=== PATIENT | male | born 1940 | race Caucasian/White ===

== ENCOUNTER → 2017-09-18 | Outpatient (CLI) | payer OTHER ==
[2017-09-18 23:11] LABS: MRSA BY PCR Negative (Negative)
== END | disposition home or self-care (01) ==
LOC: SURGPAT 14:08
DX: K44.9 Diaphragmatic hernia without obstruction or gangrene (principal); I11.0 Hypertensive heart disease with heart failure; I50.42 Chronic combined systolic (congestive) and diastolic (congestive) heart failure; E78.5 Hyperlipidemia, unspecified
CPT/HCPCS: 36415; 71046; 87641

== ENCOUNTER → 2017-09-27 | Outpatient (CLI) | payer OTHER ==
[2014-10-28 15:00] VITALS: BP 141/88
[~2017-09-27] MED LIST: AMLO2.5T PO; ASPI81TA59 PO; ATOR20TA PO; Albuterol Sulfate NEB; CARV6.25 PO; FERR325T72 PO; FLUT16SP NS; HYDR-2766 PO; Hydrocodone/Acetaminophen PO; LISI20TA PO; LISI30TA4 PO; MULT-460 PO; NITR0.4T SL; OMEG1CAP6 PO; PANT40TA3 PO; SERT50TA PO; TAMS0.4C97 PO; ZOLP5TAB PO
--- NOTE | 2017-09-27 09:49 | CARD ---
MR#: [id number] Date of Study: 09/27/2017 Ordering Physician: EB DUFFY, Referring Physician: EB DUFFY Tech: Liya May WILVER APPROVED REPORT EXAM: Two-dimensional and M-mode echocardiogram with Doppler and color Doppler. Other Information Quality : Good INDICATION Pre-Op Surgery/Intervention CABG: Date: 2014 2D DIMENSIONS Left Atrium(2D)4.7 (1.6-4.0cm)IVSd1.1 (0.7-1.1cm) Aortic Root(2D)2.8 (2.0-3.7cm)LVDd4.2 (3.9-5.9cm) LVOT Diameter2.2 (1.8-2.4cm)PWd1.1 (0.7-1.1cm) LVDs2.6 (2.5-4.0cm)FS (%) 30.0 % SV52.3 mlLVEF(%)60.0 (>50%) Aortic Valve AoV Peak Amando.194.9cm/sAoV VTI42.7cm AO Peak GR.15.2mmHgLVOT Peak Amando.94.5cm/s AO Mean GR.9mmHgAVA (VMAX)1.82cm2 TOÑA (VTI)1.90cm2 Mitral Valve MV E Oooxtler62.2cm/sMV DECEL WWOL162qu MV A Ioyalbqb57.0cm/sE/A Ratio1.2 Tricuspid Valve TR P. Melzptwd708nl/sRAP XFJYLGCL3aaZt TR Peak Gr.12vcKkSPKP69zfLp Pulmonary Vein S1 Hwfsxdoq17.5cm/sD2 Whwhauip00.2cm/s LEFT VENTRICLE The left ventricle is normal size. There is moderate LVH The left ventricular systolic function is no rmal and the ejection fraction is within normal range. The Ejection Fraction is 55-60%. The mid to di stal inferior wall and septum appear thin walled, suggestive of prior infarct. Transmitral Doppler fl ow pattern is Grade II-pseudonormal filling dynamics. RIGHT VENTRICLE The right ventricle is normal size. The right ventricular systolic function is normal. ATRIA The left atrium is mildly dilated. The right atrium size is normal. The interatrial septum is intact with no evidence for an atrial septal defect or patent foramen ovale as noted on 2-D or Doppler imagi ng. AORTIC VALVE The aortic valve is calcified and displays decreased opening. Doppler and Color Flow revealed trace a ortic regurgitation. Calculated aortic valve area is 1.9 cm2 with maximum pressure gradient of 15 mmH g and mean pressure gradient of 9 mmHg. MITRAL VALVE The mitral valve is calcified but opens well. There is no evidence of mitral valve prolapse. There is no mitral valve stenosis. Doppler and Color-flow revealed mild mitral regurgitation. TRICUSPID VALVE The tricuspid valve is normal in structure and function. Doppler and Color Flow revealed trace tricus pid regurgitation. The PA pressure was estimated at 28 mmHg. There is no tricuspid valve stenosis. PULMONIC VALVE The pulmonic valve is not well visualized. Doppler and Color Flow revealed no pulmonic valvular regur gitation. There is no pulmonic valvular stenosis. GREAT VESSELS The aortic root is normal in size. The ascending aorta is not well seen. The IVC is normal in size an d collapses >50% with inspiration. PERICARDIAL EFFUSION There is no evidence of significant pericardial effusion. Critical Notification Critical Value: No <Conclusion> There is moderate LVH The left ventricular systolic function is normal and the ejection fraction is within normal range. Th e Ejection Fraction is 55-60%. The mid to distal inferior wall and septum appear thin walled, suggestive of prior infarct. The aortic valve is calcified and displays decreased opening. Calculated aortic valve area is 1.9 cm2 with maximum pressure gradient of 15 mmHg and mean pressure g radient of 9 mmHg. Signed by : German Arredondo, Electronically Approved : 09/27/2017 09:48:21
== END | disposition home or self-care (01) ==
LOC: ECHO 08:51
PROVIDERS: ATTEND Internal Medicine Cardiovascular Disease
DX: Z01.818 Encounter for other preprocedural examination (principal); I11.0 Hypertensive heart disease with heart failure; I50.42 Chronic combined systolic (congestive) and diastolic (congestive) heart failure; I25.10 Atherosclerotic heart disease of native coronary artery without angina pectoris; E78.00 Pure hypercholesterolemia, unspecified
CPT/HCPCS: 93306

== ENCOUNTER → 2017-11-21 | Outpatient (CLI) | payer OTHER ==
[2014-10-28 15:00] VITALS: BP 141/88
[~2017-11-21] MED LIST changes: -AMLO2.5T PO; +AMLO2.5T3 PO; +ASPI325T8 PO; +CELE200C PO; +WARF3TAB50 PO
== END | disposition home or self-care (01) ==
LOC: SURGPAT 13:45
PROVIDERS: ATTEND Orthopaedic Surgery
DX: Z01.818 Encounter for other preprocedural examination (principal); E78.00 Pure hypercholesterolemia, unspecified; I10 Essential (primary) hypertension; N40.0 Benign prostatic hyperplasia without lower urinary tract symptoms; Z79.899 Other long term (current) drug therapy; Z79.82 Long term (current) use of aspirin; Z87.891 Personal history of nicotine dependence
CPT/HCPCS: 87641

== ENCOUNTER → 2020-09-29 | Outpatient (CLI) | payer MEDICARE ==
[2017-11-30 17:06] VITALS: BP 111/63
[~2020-09-29] MED LIST changes: -AMLO2.5T3 PO; +AMLO2.5T5 PO; -HYDR-2766 PO; +HYDR-2769 PO; -NITR0.4T SL; +NITR0.4T24 SL; -PANT40TA3 PO; +PANT40TA77 PO
--- NOTE | 2020-09-29 18:13 | KCIC ---
Lumbar spine 5 views: Reason for examination: Bilateral leg pain for 3 to 4 months. Began after heavy lifting. There is mild 6 mm anterolisthesis of L4 on L5. Remaining vertebral bodies are normally aligned anter iorly and posteriorly. There is however a moderate anterior wedge compression deformity at the L1 mandeep tebral body with a 40 percent loss of the vertebral height anteriorly no other site of fracture is se en. Posterior elements appear to be intact. There is a moderate to severe loss of disc height at the L5-S1 disc level. Remaining intervertebral disc spaces are maintained. No abnormality seen at the sac rum or sacroiliac joints. IMPRESSION: 40 percent anterior wedge compression deformity at the L1 vertebral body. Mild 6 mm anterolisthesis of L4 on L5. Moderate to severe loss of disc height at the L5-S1 disc level. Electronically signed by: Cris Cruz MD (09/29/2020 6:11 PM) [place]
== END ==
LOC: KCIC 15:17
PROVIDERS: ATTEND Family Medicine
DX: M43.8X6 Other specified deforming dorsopathies, lumbar region (principal); M79.604 Pain in right leg; M79.605 Pain in left leg
CPT/HCPCS: 72110

== ENCOUNTER → 2020-10-07 | Outpatient (CLI) | payer MEDICARE ==
[2017-11-30 17:06] VITALS: BP 111/63
--- NOTE | 2020-10-07 16:59 | RAD ---
EXAM: Lumbar spine MRI without contrast. HISTORY: Lumbar radiculopathy. TECHNIQUE: Multiplanar, multisequence magnetic resonance imaging of the lumbar spine was performed wi thout contrast. COMPARISON: Radiographs dated 09/29/2020. FINDINGS: There is lumbar scoliosis and mild hyperlordosis. There is 6 mm grade 1 anterolisthesis of L4 on L5. There is a moderate chronic anterior wedge compression fracture with superior endplate Schm orl's node at L1. There is multilevel endplate remodeling, predominantly at the lumbosacral junction. There is associated disc space narrowing predominantly at this level. There are several endplate Louisa morl's nodes. There is diffusely heterogeneous marrow signal intensity with superimposed benign heman giomas. There is no suspicious osseous lesion. The conus terminates at L1. At L1-L2, there is a mild disc bulge. There is mild left facet arthropathy. There is slightly promine nt dorsal epidural fat. There is mild bilateral foraminal stenosis. At L2-L3, there is a mild disc bulge. There is mild left facet arthropathy. There is mild central can al stenosis. At L3-L4, there is a mild disc bulge. There is mild left greater than right facet arthropathy. There is minimal left foraminal stenosis. There is mild central canal stenosis. At L4-L5, there is a disc bulge with right foraminal and posterior annular tears superimposed on endp late osteophytosis. There is severe bilateral facet arthropathy. There is hypertrophy of the ligament um flavum. There is grade 1 anterolisthesis. There is moderate right foraminal stenosis. There is sev ere central canal stenosis. At L5-S1, there is a right lateral recess to foraminal disc protrusion and annular tear with minimal inferior extrusion. There are also bilateral foraminal to extra foraminal disc osteophyte complexes. These are superimposed on a disc bulge and endplate osteophytosis. There is moderate right and severe left foraminal stenosis with abutment of the exiting left greater than right L5 nerve roots. There i s narrowing of the right lateral recess. IMPRESSION: 1. Multilevel degenerative change involving the lumbar spine, described in detail above. This is asso ciated with mild bilateral foraminal stenosis at L1-L2, mild central canal stenosis at L2-L3, minimal left foraminal and mild central canal stenosis at L3-L4, moderate right foraminal and severe central canal stenosis at L4-5 and moderate right and severe left foraminal stenosis and narrowing of the ri ght lateral recess at L5-S1. 2. Lumbar scoliosis, hyperlordosis and grade 1 anterolisthesis of L4 and L5. 3. Moderate chronic wedge compression deformity of L1. Electronically signed by: Belem Blanchard MD (10/07/2020 4:57 PM) [id number]
== END ==
LOC: MRI 13:37
PROVIDERS: ATTEND Family Medicine
DX: M47.27 Other spondylosis with radiculopathy, lumbosacral region (principal); M51.17 Intervertebral disc disorders with radiculopathy, lumbosacral region; M48.07 Spinal stenosis, lumbosacral region; M41.86 Other forms of scoliosis, lumbar region; M48.56XA Collapsed vertebra, not elsewhere classified, lumbar region, initial encounter for fracture; M51.46 Schmorl's nodes, lumbar region; D18.09 Hemangioma of other sites; M25.78 Osteophyte, vertebrae; M43.8X6 Other specified deforming dorsopathies, lumbar region
CPT/HCPCS: 72148